=== PATIENT | male | born 1995 | race African-American/Black ===

== ENCOUNTER 2019-09-17 18:53 | Emergency (ER) | payer OTHER, SELFPAY ==
--- NOTE | 2019-09-17 18:55 | ED.GENADULT ---
HPI - General Adult General Chief complaint: Nausea/Vomiting/Diarrhea Stated complaint: wellness check Time Seen by Provider: 09/17/19 19:04 Source: patient Mode of arrival: ambulatory Limitations: no limitations History of Present Illness HPI narrative: 24-year-old male patient presents to the [facility] requesting a work note. Patient states that he had a little bit of abdominal pain last Friday night and had some diarrhea on Friday and called off work on Friday. Patient states he was told by his supervisor rides he cannot return to work until he was seen. Patient states he did miss all week of work but states he is feeling much better. Denies any fevers, nausea, vomiting or diarrhea. Patient states all he is needing today as a work note to return to work. Related Data Home Medications Medication Instructions Recorded Confirmed No Home Medications 09/17/19 09/17/19 Allergies Allergy/AdvReac Type Severity Reaction Status Date / Time No Known Allergies Allergy Unverified 01/15/18 11:03 Review of Systems Review of Systems: Narrative: CONSTITUTIONAL: Denies fever, chills, or sweats. EYES: Denies visual changes, redness, or discharge. ENT: Denies rhinorrhea, congestion, sore throat, or otalgia. CARDIOVASCULAR: Denies chest pain, palpitations, or edema. RESPIRATORY: Denies cough or dyspnea. GASTROINTESTINAL: Positive generalized abdominal pain that has since resolved, denies nausea, vomiting, positive diarrhea 5 days ago that has since resolved.. GENITOURINARY: Denies dysuria or hematuria. SKIN: Denies rash or itching. MUSCULOSKELETAL: Denies back pain, joint pain, or myalgia. NEUROLOGIC: Denies headache, numbness, or weakness. PSYCHIATRIC: Denies anxiety or depression. PMFSH Comments At the time of my signature I agree with nursing past medical history, surgical, social, and family history. There is no relevant family history pertinent to the presenting complaint. Exam Narrative: Exam Narrative: GENERAL: Well-appearing, well-nourished, and in no acute distress. HEAD: Normocephalic, atraumatic. EYES: PERRLA and EOMI. ENT: Nares clear, no rhinorrhea or epistaxis. Mucous membranes moist. NECK: Supple. No lymphadenopathy CHEST: Clear to auscultation. No respiratory distress. HEART: Regular rate and rhythm. No murmur heard. Normal peripheral pulses. ABDOMEN: Soft, flat, nondistended. No guarding, rebound tenderness, or rigid. No pulsatilla masses. Bowel sounds present in all four quadrants. No organomegaly. Negative Renteria?s sign. No periumbicial tenderness. No Supra public tenderness or distension. Good femoral pulses bilaterally. No hernia noted. No scars or surface trauma. EXTREMITIES: Normal range of motion. No edema. SKIN: Warm, dry, no rash. NEURO: No focal deficits. Alert and oriented x3. Course Vital Signs Vital signs: Vital Signs Temperature 36.9 C 09/17/19 19:02 Pulse Rate 71 09/17/19 19:02 Respiratory Rate 18 09/17/19 19:02 Blood Pressure 123/61 09/17/19 19:02 Pulse Oximetry 100 09/17/19 19:02 Temperature 36.9 C 09/17/19 19:02 Pulse Rate 71 09/17/19 19:02 Respiratory Rate 18 09/17/19 19:02 Blood Pressure 123/61 09/17/19 19:02 Pulse Oximetry 100 09/17/19 19:02 Vital signs reviewed. Medical Decision Making Differential Diagnosis Differential Diagnosis: Differential diagnosis: Appendicitis, ovarian torsion, gallbladder disease, ovarian torsion, pancreatitis, lower lobe pneumonia,AAA, AMI or ACS, DKA, diverticulitis. Discussed with patient I do not see any evidence issues with his abdomen today. Patient states he is feeling much better just requiring a work note. Discussed with him I cannot backdate notes that I can only actually cover him for today stating that he was seen today. Patient is in agreement with this plan of care at this time denies any other questions or concerns at this time. Vital Signs Vital Signs: Vital Signs Temperature 36.9 C 09/17/19 19:02
[2019-09-17 19:02] VITALS: BP 123/61; PULSE 71; RESP 18; TEMP 36.9; O2SAT 100
== END 2019-09-17 19:19 | disposition home or self-care (01) ==
PROVIDERS: Emergency Provider Nurse Practitioner Family; PCP Emergency Medicine
DX: R19.7 Diarrhea, unspecified (principal); R10.84 Generalized abdominal pain
CPT/HCPCS: 99211; G0463

== ENCOUNTER 2020-11-02 09:58 | Emergency (ER) | payer OTHER, SELFPAY ==
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
[2020-11-02 10:07] VITALS: BP 116/68; PULSE 68; RESP 16; TEMP 36.6; O2SAT 100
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
== END 2020-11-02 11:09 | disposition home or self-care (01) ==
PROVIDERS: Emergency Provider Nurse Practitioner
DX: T14.8XXA Other injury of unspecified body region, initial encounter (principal); V49.9XXA Car occupant (driver) (passenger) injured in unspecified traffic accident, initial encounter; M54.2 Cervicalgia; S69.91XA Unspecified injury of right wrist, hand and finger(s), initial encounter
CPT/HCPCS: 72050; 73130; 99213; G0463

== ENCOUNTER 2021-01-06 16:48 | Emergency (ER) | payer OTHER, SELFPAY ==
--- NOTE | ~2021-01-06 | XR_ITS ---
EXAMINATION: XR chest 2V DATE: 01/06/2021 17:53 INDICATION: Chest pain. TECHNIQUE: Frontal and lateral views of the chest were obtained. COMPARISON: None. FINDINGS: The chest demonstrates clear lungs without pneumonia, pleural effusion, or pneumothorax. Th e heart size is normal. IMPRESSION: 1. No acute cardiopulmonary disease. Reviewed, dictated and finalized at location A.
[2021-01-06 16:56] VITALS: BP 120/67; PULSE 87; RESP 16; TEMP 36.2; O2SAT 99
--- NOTE | 2021-01-06 17:54 | ED.GENADULT ---
HPI - General Adult General Chief complaint: Headache Stated complaint: headache Time Seen by Provider: 01/06/21 17:32 Source: patient and RN notes reviewed Mode of arrival: ambulatory Limitations: no limitations History of Present Illness HPI narrative: 25-year-old -[place] male presents with complaints of headache with aura for the past 3 days. Abel reports intermittent RODRIGUEZ with intermittent lightheadedness and vomiting. ?Tylenol with some relief. ?Abel reports that RODRIGUEZ is not the WORST one of his life. ?No neck stiffness. ?No fever or chills. ?No URI symptoms. ?No head injury. ?History of migraines. ?Denies dizziness, vision change, confusion, or seizure activity. ?Intermittent vomiting without blood, last on 01/05/21. ?Denies nausea and abdominal pain. ?Remains active. ?The patient reports he has not been diagnosed with COVID-19. ?The patient reports he received 2 Pfizer COVID-19 vaccines. ?The patient reports he is not waiting for the results of a COVID-19 lab test. ?The patient reports he does not have weakness, fatigue, or myalgia. ?The patient reports he does not have a new or worsening cough or shortness of breath. ?The patient reports he does not have any rhinorrhea, congestion, loss of taste or smell, sore throat, and diarrhea. ?Denies recent traveling. ?Denies concerns for COVID-19 or exposures. ?At this time, the patient is not suspected of having COVID-19. Some parts of this dictation were generated by voice recognition software and may contain typographical and/or grammatical inaccuracies. Related Data Allergies Allergy/AdvReac Type Severity Reaction Status Date / Time No Known Allergies Allergy Verified 11/02/20 10:14 Review of Systems Review of Systems: CONSTITUTIONAL: Denies fever, chills, sweats. EYES: Denies visual changes, redness, discharge. ENT: Denies rhinorrhea, congestion, sore throat, otalgia. CARDIOVASCULAR: Denies chest pain, palpitations, edema. RESPIRATORY: Denies dyspnea, wheezing, cough. GASTROINTESTINAL: Denies abdominal pain, nausea, vomiting, or diarrhea. GENITOURINARY: Denies dysuria, hematuria, abnormal discharge. SKIN: Denies rash or itching. MUSCULOSKELETAL: Denies acute back pain, joint pain, or myalgia. Complains of intermittent LT arterial-lateral chest wall pain with deep breaths. NEUROLOGIC: Denies numbness or focal weakness. Complaints of headaches, lightheadedness. PSYCHIATRIC: Denies anxiety or depression. All systems reviewed & are unremarkable except as noted in HPI and below. [facility] Past Medical History Medical History (Updated 01/13/21 @ 15:39 by ZANE Barreto) Asthma History of frequent headaches Surgical History Surgical History (Updated 01/13/21 @ 15:38 by ZANE Barreto) No significant past surgical history Family History Family History (Updated 01/13/21 @ 15:42 by ZANE Barreto) Father Alive and well Mother , 11/03/2020 Unknown family medical history Other No acute medical problems Social History Social History (Updated 01/13/21 @ 15:44 by ZANE Barreto) Smoking status: Smoker, status unknown Tobacco type: cigars Second hand tobacco smoke exposure: No Additional smoking assessment comments: smokes 1 black and mild cigar for the past 6 months Alcohol intake: current Substance use: never Substance use type: does not use Living arrangements: with family Occupation/Education: occupation Gender identity (if verbalized by the patient): Male Comments At time of signature, agree with the nurse past medical, surgical, social, and family history. There is relevant patient's history pertinent to the presenting complaint, no relevant family history pertinent to the presenting complaint. Exam Narrative: GENERAL: This is a well-nourished, well-developed patient, in no apparent distress. Talks in full sentences, no language deficiencies and ambulates with steady gait without dyspnea. HE
[2021-01-09 01:23] LABS: SARS-CoV-2 RNA PCR Negative
== END 2021-01-06 18:23 | disposition home or self-care (01) ==
PROVIDERS: Emergency Provider Nurse Practitioner Family
DX: R51.9 Headache, unspecified (principal); J06.9 Acute upper respiratory infection, unspecified; Z20.822 Contact with and (suspected) exposure to COVID-19
CPT/HCPCS: 71046; 99213; C9803; G0463; U0003; U0005

== ENCOUNTER 2021-07-11 15:40 | Emergency (ER) | payer OTHER, SELFPAY ==
[2021-07-11 15:50] VITALS: BP 117/74; PULSE 63; RESP 16; TEMP 36.1; O2SAT 99
--- NOTE | 2021-07-11 16:28 | ED.HEATRA ---
HPI - Head Injury General Chief complaint: Head Injury Stated complaint: head injury/cut above eye Time Seen by Provider: 07/11/21 16:28 Source: patient Mode of arrival: ambulatory Limitations: no limitations History of Present Illness HPI Narrative: 26 y/o male presented for c/o headache after injury 2 nights ago. Pt was head butted while playing basketball, struck in the right eyebrow. Reports going to the ER for evaluation but did not stay. Lac is closed, mild swelling reported. Endorses headache with light sensitivity. Denies associated nausea, vomiting, dizziness, confusion, disequilibrium. Has not taken anything for pain. Related Data Home Medications Medication Instructions Recorded Confirmed No Home Medications 07/11/21 07/11/21 Allergies Allergy/AdvReac Type Severity Reaction Status Date / Time No Known Allergies Allergy Verified 07/11/21 15:51 Review of Systems Review of Systems: CONSTITUTIONAL: Denies body aches, fever, chills, or sweats. EYES: occasional blurred vision to right eye ENT: Denies rhinorrhea, congestion, sore throat, or otalgia. CARDIOVASCULAR: Denies chest pain, palpitations, or edema. RESPIRATORY: Denies cough or dyspnea. GASTROINTESTINAL: Denies abdominal pain, nausea, vomiting, or diarrhea. GENITOURINARY: Denies dysuria or hematuria. SKIN: laceration to right eyebrow MUSCULOSKELETAL: Denies back pain, joint pain, or myalgia. NEUROLOGIC: endorses headache, denies numbness, tingling, or weakness. PSYCH: Denies depression or anxiety. [facility] Past Medical History Medical History (Updated 07/11/21 @ 16:42 by Nisha Coronel APRN) Asthma History of frequent headaches Surgical History Surgical History No significant past surgical history Family History Family History Father Alive and well Mother , 11/03/2020 Unknown family medical history Other No acute medical problems Social History Social History Smoking status: Smoker, status unknown Tobacco type: cigars Second hand tobacco smoke exposure: No Additional smoking assessment comments: smokes 1 black and mild cigar for the past 6 months Alcohol intake: current Substance use: never Substance use type: does not use Gender identity (if verbalized by the patient): Male Comments At time of signature, I have reviewed and agree with nursing past medical, surgical, social and family history unless otherwise noted. Please see nursing chart for further information. There is no relevant family history pertinent to the presenting complaint Exam Narrative: GENERAL: Well-appearing, well-nourished, and in no acute distress. HEAD: Normocephalic, atraumatic. EYES: PERRLA, conjunctivae clear, and EOMI. photophobia noted ENT: Mucous membranes moist. NECK: Supple. No lymphadenopathy CHEST: Clear to auscultation. No respiratory distress. HEART: Regular rate and rhythm. SKIN: Warm, dry. approx 1.5cm lac to right upper eyelid/brow no active drainage, wound is approximated, mild swelling NEURO: Alert and oriented x3. PSYCH: Normal mood and affect Course Course Emergency Course: Patient is aware of diagnosis, understands and agrees to treatment plan. Anticipatory guidance given. Patient agrees to follow-up as directed and is aware of reasons to seek care at the emergency department. Portions of this record may have been created with voice recognition software Level of Care: Express Care Visit Vital Signs Vital signs: Vital Signs Temperature 96.9 F L 07/11/21 15:50 Pulse Rate 63 07/11/21 15:50 Respiratory Rate 16 07/11/21 15:50 Blood Pressure 117/74 07/11/21 15:50 Pulse Oximetry 99 07/11/21 15:50 Temperature 96.9 F L 07/11/21 15:50 Pulse Rate 63 07/11/21 15:50 Respiratory Rate 16 07/11/21 15:50 Blood Pr
== END 2021-07-11 16:45 | disposition home or self-care (01) ==
PROVIDERS: Emergency Provider Nurse Practitioner Family
DX: S01.111A Laceration without foreign body of right eyelid and periocular area, initial encounter (principal); S09.90XA Unspecified injury of head, initial encounter; W51.XXXA Accidental striking against or bumped into by another person, initial encounter; Y93.67 Activity, basketball; J45.909 Unspecified asthma, uncomplicated
CPT/HCPCS: 99213; G0463